=== PATIENT | female | born 1950 | race Hispanic/Latino ===

== ENCOUNTER 2023-10-01 20:08 | Emergency (ER) | payer MEDICARE ==
[~2023-10-01] VITALS: Ht 152.4 cm; Wt 97.5 kg
[2023-10-01] MEDS: TIZANIDINE HCL 2 MG TABLET PO SCH (20:44)
[2023-10-01] MEDS: DIAZEPAM 2 MG TAB PO ONE (20:45)
[2023-10-01 22:27] VITALS: BP 155/84; PULSE 72; RESP 18; O2SAT 98
== END 2023-10-01 22:28 | disposition home or self-care (01) ==
LOC: EDH 20:08
DX: S10.83XA Contusion of other specified part of neck, initial encounter (principal); W01.0XXA Fall on same level from slipping, tripping and stumbling without subsequent striking against object, initial encounter; Y93.H1 Activity, digging, shoveling and raking; Y92.89 Other specified places as the place of occurrence of the external cause; Y99.8 Other external cause status
CPT/HCPCS: 70450; 72125